=== PATIENT | female | born 1995 | race African-American/Black ===

== ENCOUNTER 2021-06-18 02:13 | Emergency (ER) | payer MEDICAID ==
[~2021-06-18] VITALS: Ht 160 cm; Wt 82.0 kg
[2021-06-18] MEDS ORDERED: KETOROLAC 60MG/2ML VIAL IM STA (02:48)
[2021-06-18 04:13] LABS: BASOPHILS % 0.6 % (0.0-2.0); EOSINOPHILS % 0.1 % (0.0-5.0); HEMATOCRIT. 40.5 % (36.0-48.0); HEMOGLOBIN. 13.5 g/dL (12.0-16.0); LYMPHOCYTES % 13.4 % (20.0-50.0); MEAN CORPUSCULAR HEMOGLOBIN 27.7 pg (28.0-32.0); MEAN CORPUSCULAR VOLUME 82.8 fL (81.0-99.0); MEAN PLATELET VOLUME 8.2 fl (7.4-10.4); MONOCYTES % 5.8 % (2.0-8.0); NEUTROPHILS % 80.1 % (40.0-76.0); PLATELET 319 x1000/uL (130-400); RED BLOOD CELL COUNT 4.89 mill/uL (4.2-5.4); RED CELL DISTRIBUTION WIDTH 14.8 % (11.6-14.6)
[2021-06-18 04:29] LABS: CHLORIDE 104 mEq/L (98-107)
[2021-06-18 04:38] LABS: ETHANOL BLOOD < 10 mg/dL
[2021-06-18] MEDS ORDERED: PIPERACILLIN/TAZOBACTAM 3.375GM/50ML PREMIX IV SCH (04:45)
[2021-06-18 05:40] LABS: CLARITY URINE CLOUDY (CLEAR); COLOR URINE YELLOW (YELLOW); KETONES URINE 3+ (NEGATIVE); LEUKOCYTE ESTERASE URINE NEGATIVE (NEGATIVE); NITRITE URINE POSITIVE (NEGATIVE); OCCULT BLOOD URINE 2+ (NEGATIVE); PROTEIN URINE TRACE (NEGATIVE); SPECIFIC GRAVITY URINE 1.027 (1.005-1.030)
[2021-06-18 05:51] LABS: PHENCYCLIDINE URINE SCREEN NEGATIVE (NEGATIVE)
[2021-06-18 05:52] LABS: *BARBITURATES SCREEN URINE NEGATIVE (NEGATIVE); *BENZODIAZEPINES SCREEN URINE NEGATIVE (NEGATIVE); *COCAINE SCREEN URINE NEGATIVE (NEGATIVE); METHADONE URINE SCREEN NEGATIVE (NEGATIVE); OPIATES URINE SCREEN NEGATIVE (NEGATIVE)
[2021-06-18 06:19] LABS: *AMPHETAMINES SCREEN URINE PRESUMTIVE POSITIVE (NEGATIVE); CANNABINOID URINE SCREEN PRESUMTIVE POSITIVE (NEGATIVE)
[2021-06-18] MEDS ORDERED: IBUP-2030 MT (10:59)
[2021-06-18] MEDS ORDERED: HYDR-4001 MT (10:59)
[2021-06-18] MEDS ORDERED: NITR-87 MT (11:06)
[2021-06-18 11:40] VITALS: BP 128/81
== END 2021-06-18 11:50 | disposition home or self-care (01) ==
LOC: ER 02:13
DX: N39.0 Urinary tract infection, site not specified (principal); F15.10 Other stimulant abuse, uncomplicated; F17.290 Nicotine dependence, other tobacco product, uncomplicated; Z88.2 Allergy status to sulfonamides; Z86.59 Personal history of other mental and behavioral disorders
CPT/HCPCS: 36415; 74176; 76830; 76856; 80053; 80305; 80320; 81003; 81025; 83690; 85025; 87040; 96372; 96374; 99284; 99406; J1885; J2543; G0480